=== PATIENT | male | born 1965 | race African-American/Black ===

== ENCOUNTER 2017-08-22 11:02 | Outpatient (CLI) | payer BC | END 2017-08-22 11:03 | disposition home or self-care (01) | LOC: CTENTCT 11:02 | PROVIDERS: ATTEND Otolaryngology Plastic Surgery within the Head & Neck | DX: J32.9 Chronic sinusitis, unspecified (principal) | CPT/HCPCS: 70486 ==

== ENCOUNTER 2017-10-05 12:32 | Day surgery (SDC) | payer BC ==
[2017-10-04 14:49] VITALS: BMI 31.2
[2017-10-05] MEDS ORDERED: Oxymetazoline HCl 0.05% ( 15 ML ) ONE ×2 (13:05→14:49)
[2017-10-05] MEDS ORDERED: Glycopyrrolate 0.2 MG/ML 5 ML SYRINGE ONE (14:00)
[2017-10-05] MEDS ORDERED: Lidocaine 1% PF 5 ML VIAL ONE (14:00)
[2017-10-05] MEDS ORDERED: Dexamethasone 20 MG/5 ML VIAL ONE (14:00)
[2017-10-05] MEDS ORDERED: Ondansetron HCl/PF 4 MG/2 ML Vial ONE (14:00)
[2017-10-05] MEDS ORDERED: PROPOFOL 200 MG/20 ML VIAL ONE (14:00)
[2017-10-05] MEDS ORDERED: Lidocaine 1% w/Epinephrine 1:200K 30 ML VIAL ONE (14:48)
[2017-10-05] MEDS ORDERED: Bacitracin Zinc Ointment 30 gm TUBE ONE (14:49)
[2017-10-05] MEDS ORDERED: Fentanyl 250 MCG/5 ML VIAL ONE ×2 (14:50→16:01)
[2017-10-05] MEDS ORDERED: Meperidine HCl/PF 25 MG/ML VIAL ONE (16:02)
--- NOTE | 2017-10-05 21:44 | OP ---
PREOPERATIVE DIAGNOSES: 1. Chronic rhinosinusitis. 2. Nasal septal deviation. 3. Bilateral inferior turbinate hypertrophy. 4. Nasal obstruction. POSTOPERATIVE DIAGNOSES: 1. Chronic rhinosinusitis. 2. Nasal septal deviation. 3. Bilateral inferior turbinate hypertrophy. 4. Nasal obstruction. PROCEDURES: 1. Bilateral endoscopic sinus surgery, total ethmoidectomies. 2. Bilateral endoscopic sinus surgery, maxillary antrostomies. 3. Bilateral endoscopic sinus surgery, sphenoidotomies. 4. Bilateral endoscopic sinus surgery, frontal sinusotomy. 5. Nasal septoplasty. 6. Bilateral inferior turbinate submucosal resection. SURGEON: Dr. Chema Hernandez. ESTIMATED BLOOD LOSS: 50 mL. COMPLICATIONS: None. ANESTHESIA: GETA. PROCEDURE IN DETAIL: Patient was taken to the operating room and placed supine on the table. Genera l endotracheal anesthesia was obtained by the Anesthesia staff. Tube was secured in the left lower l ip. Patient was then placed in the beach chair position, and Afrin pledgets were placed in the nasal cavity. Injections of 1% lidocaine with 1:100,000 epinephrine were made into the nasal septum as we ll as the inferior turbinates. Patient was then prepped and draped in standard surgical fashion for nasal surgery. Following this, the Afrin pledgets were removed. A Ady incision was made on the left nasal septum. Submucoperichondrial dissection was performed. The deviated portions of the sep mike included portions of the cartilage and the bony septum. These isolated areas were removed using t hree cutting rongeurs. There was noted to be a large dorsal and caudal strut, left intact for suppor t of the nose. The mucoperichondrial flaps were then reapproximated using a 4-0 gut stitch. Any str aight pieces of cartilage were crushed prior to this and placed between the mucoperichondrial flaps. Following this, the inferior turbinates were then punctured with a submucosal coblation wand, and sub mucosal coblations were performed of multiple areas of the inferior portion of the anterior inferior turbinate. Please note that the submucosal microdebrider was used to submucosally resect the anterio r and inferior portions of the inferior turbinates. Inferior turbinates were then laterally fracture d with a [place] elevator. Following this, the 0-degree scope was advanced into the middle meatus. In jections 1% lidocaine with 1:100,000 epinephrine were made into the middle turbinates in lateral nasa l wall. Following this, the middle turbinates were gently medialized with a [employer] [place] elevator and the u ncinate process was anteriorly fractured using a ball-ended probe bilaterally. The uncinate process was then removed using the straight microdebrider and upbiting [place]akesley forceps. Following this, th e ball-ended probe was used to gently identify the natural maxillary sinus ostia, which was then wide roxane using the 40-degree microdebrider blade. Following this, the ethmoidal bulla was identified bila terally and was punctured on its anterior and inferior aspect with the microdebrider and was removed using [place] forceps. Following this, the grand lamella was then identified and was punctured int o the posterior ethmoidal cells. Working from posterior to anterior, the ethmoidal cells were opened in a mucosal-sparing technique. Working through the ethmoidectomies, the sphenoid sinus ostia were identified were gently widened medially and inferiorly using the microdebrider bilaterally. Followin g this, the 45-degree scope and the 40-degree radenoid blade was then used to open the frontal sinus recess and frontal sinus ostia bilaterally. Following this, the nasal cavity was irrigated. MeroPac ks were placed within the middle meatus. South splints were placed and secured. The patient tolerat ed the procedure well.
--- NOTE | 2017-10-11 20:08 | EKG ---
Test Reason : PREOP Blood Pressure : / mmHG Vent. Rate : 097 BPM Atrial Rate : 097 BPM P-R Int : 136 ms QRS Dur : 080 ms QT Int : 334 ms P-R-T Axes : 058 021 010 degrees QTc Int : 424 ms Normal sinus rhythm Normal ECG No previous ECGs available Confirmed by FRIDA GOEL (2) on 10/11/2017 8:07:56 PM Referred By: ISAAC Confirmed By:FRIDA GOEL
== END 2017-10-05 17:20 | disposition home or self-care (01) ==
LOC: SDC 12:32 → EEVIPCON 12:32 → SDC 17:20
PROVIDERS: ATTEND Otolaryngology Plastic Surgery within the Head & Neck
DX: J32.9 Chronic sinusitis, unspecified (principal); J34.2 Deviated nasal septum; J34.3 Hypertrophy of nasal turbinates; M54.5 Low back pain; G89.29 Other chronic pain; F17.210 Nicotine dependence, cigarettes, uncomplicated; R05 Cough
CPT/HCPCS: 93005; 93010; 96374; J1100; J2001; J2175; J2405; J2704; J3010

== ENCOUNTER 2019-03-30 00:57 | Emergency (ER) | payer BC ==
[2019-03-30 01:24] LABS: Hemoglobin 16.3 g/dL (14.0-18.0); Mean Corpuscular HGB CONC 36.2 g/dL (32.0-36.0); Mean Corpuscular Hemoglobin 30.3 pg (27.0-31.0); Mean Corpuscular Volume 83.8 fL (78.0-98.0); Mean Platelet Volume 8.7 fL (7.4-10.4); Platelet Count 193 thou/uL (130-400); RBC Distribution Width 13.7 % (11.5-14.5); Red Blood Cell (RBC) Count 5.38 mill/uL (4.70-6.10); White Blood Cell (WBC) Count 9.5 thou/uL (4.8-10.8)
[2019-03-30 01:42] LABS: ALT (SGPT) 58 U/L (8-55); AST (SGOT) 33 U/L (5-34); Albumin 4.5 g/dL (3.5-5.0); Alkaline Phosphatase 89 U/L (40-150); Anion Gap 13 mmol/L (10-20); BUN (Urea Nitrogen) 14 mg/dL (8.4-25.7); Bilirubin, Total 0.3 mg/dL (0.2-1.2); CK (CPK) 220 U/L (30-200); Calc. Creatinine Clearance 0 mL/min (70-130); Calcium 9.9 mg/dL (7.8-10.44); Carbon Dioxide 27 mmol/L (22-29); Chloride 103 mmol/L (98-107); Estimated GFR-MDRD Greater than 90; Globulin 2.7 g/dL (2.4-3.5); Glucose 101 mg/dL (70-105); Protein, Total 7.2 g/dL (6.0-8.3); Sodium 139 mmol/L (136-145)
[2019-03-30 01:46] LABS: Band 1 % (5-11); Eosinophils 3 % (0-10); Lymphocytes 55 % (21-51); MDiff Complete? YES; Monocytes 2 % (0-10); Neutrophil 38 % (42-75); Platelet Morphology Comment Appears Adequate; RBC Morphology Normal; Reactive Lymphocytes 1 % (0-10)
[2019-03-30 05:31] LABS: Troponin I Less than 0.010 ng/mL (< 0.028)
[2019-03-30] MEDS ORDERED: Ketorolac Tromethamine 30 MG/ML VIAL ONE (05:46)
--- NOTE | 2019-03-30 07:48 | RAD ---
XR Chest 1 View Portable HISTORY: Chest pain COMPARISON: None FINDINGS: There are calcified right paratracheal lymph nodes consistent with old granulomatous diseas e. The heart size is normal. The lungs are well expanded without focal areas of consolidation, pneumothorax or pleural effusions. IMPRESSION: No radiographic evidence of acute cardiopulmonary process.
--- NOTE | 2019-03-30 08:35 | CT ---
PRELIMINARY REPORT/[facility]/EMERGENCY AFTER HOURS PROCEDURE: EXAM: CT Angiography Chest With Contrast EXAM DATE/TIME: 03/30/2019 1:35 AM CLINICAL HISTORY: 53 years old, male; Chest pain; Patient HX: Er waiting room; M53, PT presents to ED with report of cp started 7 or 8pm while watching football. PT reports sharp pain to mid sternal and "a little" SOB. A bnormal chest xray. TECHNIQUE: Imaging protocol: Computed tomographic angiography of the chest with intravenous contrast. COMPARISON: No relevant prior studies available. FINDINGS: Pulmonary arteries: No evidence of pulmonary embolism. Aorta: No acute findings. No aortic aneurysm or dissection. Lungs: Elevation of left hemidiaphragm. Bilateral linear/subsegmental and groundglass dependent atele ctatic opacities. Mild peripheral tiny reticulonodular and groundglass opacities, likely related to p eripheral mild fibrotic changes. Pleural space: No pneumothorax. No pleural effusion. Heart: No significant cardiomegaly. No pericardial effusion. Lymph nodes: No significant adenopathy. Bones/joints: No acute fracture. Soft tissues: No acute findings. IMPRESSION: No aortic dissection or aneurysm. No evidence of pulmonary embolism. Findings described above. EXAM: CT Angiography Abdomen With Contrast EXAM DATE/TIME: 03/30/2019 1:35 AM CLINICAL HISTORY: 53 years old, male; Chest pain; Patient HX: Er waiting room; M53, PT presents to ED with report of cp started 7 or 8pm while watching football. PT reports sharp pain to mid sternal and "a little" SOB. A bnormal chest xray. TECHNIQUE: Imaging protocol: Computed tomographic angiography images of the abdomen with intravenous contrast ma terial. COMPARISON: No relevant prior studies available. FINDINGS: VASCULATURE: Aorta: No acute findings. No aortic aneurysm. No aortic dissection. Celiac trunk and mesenteric arteries: No acute findings. No occlusion or significant stenosis. Renal arteries: No acute findings. No occlusion or significant stenosis. ABDOMEN: Liver: No acute findings. No mass. Small left pelvic calcification. Gallbladder and bile ducts: The gallbladder is contracted. Pancreas: No acute findings. No ductal dilation. Spleen: No acute findings. No splenomegaly. Adrenals: No acute findings. No mass. Kidneys and ureters: Few small nonobstructing left renal calculi. No acute findings. No hydronephrosi s. Stomach and bowel: No obstruction. Intraperitoneal space: No free air. No significant fluid collection. Bones/joints: No acute fracture. Soft tissues: No acute findings. Small fat-containing umbilical hernia. Lymph nodes: No enlarged lymph nodes. IMPRESSION: No acute findings. Few small nonobstructing left renal calculi. Thank you for allowing us to participate in the care of your patient. Dictated and Authenticated by: Selwyn Mclaughlin MD 03/30/2019 3:11 AM Central Time ([place] & [place]) FINAL REPORT CT OF CHEST WITH IV CONTRAST AND 3D POST PROCESSING CT ABDOMEN WITH IV CONTRAST AND 3D POST PROCESSING: I agree with the preliminary report given by Dr. Mclaughlin of [facility]. POS: [facility]
[2019-03-30] MEDS ORDERED: ISOVUE-370 76%-LOCM 1 ML ONE (10:22)
== END 2019-03-30 05:56 | disposition home or self-care (01) ==
LOC: ERS 00:57
DX: R07.2 Precordial pain (principal); F17.210 Nicotine dependence, cigarettes, uncomplicated; Z79.899 Other long term (current) drug therapy
CPT/HCPCS: 36415; 71045; 71275; 80053; 82550; 84484; 85025; 93005; 96374; J1885

== ENCOUNTER 2022-02-16 08:58 | Emergency (ER) | payer BC ==
[2022-02-16 09:56] LABS: #Basophils 0.1 thou/uL (0.0-0.2); #Eosinphils 0.1 thou/uL (0.0-0.7); #Lymphocytes 2.9 thou/uL (1.20-3.40); #Monocytes 0.7 thou/uL (0.11-0.59); #Neutrophils 5.8 thou/uL (1.40-6.50); %Basophils 0.8 % (0.0-1.0); %Eosinophils 0.6 % (0.0-10.0); %Lymphocytes 30.6 % (21.0-51.0); %Monocytes 7.1 % (0.0-10.0); %Neutrophils 60.9 % (42.0-75.0); Hemoglobin 18.6 g/dL (14.0-18.0); Mean Corpuscular HGB CONC 34.3 g/dL (32.0-36.0); Mean Corpuscular Hemoglobin 29.7 pg (27.0-31.0); Mean Corpuscular Volume 86.6 fL (78.0-98.0); Mean Platelet Volume 8.3 fL (7.4-10.4); Platelet Count 274 thou/uL (130-400); RBC Distribution Width 13.6 % (11.5-14.5); Red Blood Cell (RBC) Count 6.26 mill/uL (4.70-6.10); White Blood Cell (WBC) Count 9.6 thou/uL (4.8-10.8)
[2022-02-16] MEDS ORDERED: Ondansetron PF 4 MG/2 ML Vial ONE (09:59)
[2022-02-16 10:12] LABS: ALT (SGPT) 26 U/L (8-55); AST (SGOT) 18 U/L (5-34); Albumin 4.8 g/dL (3.5-5.0); Alkaline Phosphatase 83 U/L (40-110); Anion Gap 14 mmol/L (10-20); BUN (Urea Nitrogen) 7 mg/dL (8.4-25.7); Bilirubin, Total 0.8 mg/dL (0.2-1.2); Calc. Creatinine Clearance 0 mL/min (70-130); Calcium 9.4 mg/dL (7.8-10.44); Carbon Dioxide 21 mmol/L (22-29); Chloride 107 mmol/L (98-107); Estimated GFR 102; Globulin 2.7 g/dL (2.4-3.5); Glucose 121 mg/dL (70-105); Lipase 28 U/L (8-78); Potassium 3.6 mmol/L (3.5-5.1); Protein, Total 7.5 g/dL (6.0-8.3); Sodium 138 mmol/L (136-145)
[2022-02-16] MEDS ORDERED: Morphine 4 MG/ML VIAL ONE (11:16)
[2022-02-16 11:43] LABS: Bacteria/HPF None Seen HPF (None Seen); Bilirubin Negative (Negative); Blood, Urine Negative (Negative); Clarity Clear (Clear); Glucose, Urine (Dipstick) Normal (Negative); Ketone, Urine 80 mg/dL (Negative); Leukocyte Negative Leu/uL (Negative); Nitrite Negative (Negative); Protein, Urine (Dipstick) 50 mg/dL (Neg-Trace); RBC/HPF 0-3 HPF (0-3); Squamous Epithelial None Seen HPF (0-3); Urobilinogen 3 mg/dL (Less than 2); WBC/HPF 0-3 HPF (0-3); pH, Urine 6.5 (5.0-9.0)
== END 2022-02-16 13:19 | disposition home or self-care (01) ==
LOC: ERS 08:58
DX: U07.1 COVID-19 (principal); R11.2 Nausea with vomiting, unspecified; R00.0 Tachycardia, unspecified; F17.210 Nicotine dependence, cigarettes, uncomplicated; I10 Essential (primary) hypertension; Z79.899 Other long term (current) drug therapy
CPT/HCPCS: 36415; 71045; 80053; 81003; 81015; 83690; 84484; 85025; 93005; 96374; 96375; J2270; J2405; U0003; U0005

== ENCOUNTER 2022-03-08 09:41 | Outpatient (CLI) | payer BC | END 2022-03-08 09:42 | disposition home or self-care (01) | LOC: MRI 09:41 | PROVIDERS: ATTEND Specialist | DX: M51.16 Intervertebral disc disorders with radiculopathy, lumbar region (principal); M47.816 Spondylosis without myelopathy or radiculopathy, lumbar region | CPT/HCPCS: 72148 ==

== ENCOUNTER 2024-04-17 06:20 | Observation (INO) | payer BC ==
[2024-04-10 13:22] VITALS: BMI 29.9
[2024-04-17] MEDS ORDERED: Thrombin 5000 UNITS/5 ML VIAL ONE (06:38)
[2024-04-17] MEDS ORDERED: Sodium Chloride 0.9% 100 ML ONE (06:46)
[2024-04-17] MEDS ORDERED: CEFAZOLIN 2 GM VIAL ONE (06:46)
[2024-04-17] MEDS ORDERED: Lidocaine 1% PF 5 ML VIAL ONE (06:53)
[2024-04-17] MEDS ORDERED: Rocuronium Bromide 10 MG/ML (10ML VIAL) ONE (06:53)
[2024-04-17] MEDS ORDERED: fentaNYL PF 100 MCG/2 ML SYRINGE ONE ×2 (06:53→09:10)
[2024-04-17] MEDS ORDERED: PROPOFOL 20 ML ONE (06:53)
[2024-04-17] MEDS ORDERED: Vancomycin 1 GM VIAL ONE (07:00)
[2024-04-17] MEDS ORDERED: Dexamethasone 20 MG/5 ML VIAL ONE ×2 (08:31→12:22)
[2024-04-17] MEDS ORDERED: Ondansetron PF 4 MG/2 ML Vial ONE ×3 (08:31→12:22)
[2024-04-17] MEDS ORDERED: Dexmedetomidine 200 MCG/2 ML VIAL ONE (09:06)
[2024-04-17] MEDS ORDERED: HYDROmorphone 2 MG/ML VIAL SLOW IVP PRN (09:29)
[2024-04-17] MEDS ORDERED: Morphine Sulfate 2 MG/ML SYRINGE SLOW IVP PRN (09:29)
[2024-04-17] MEDS ORDERED: Ondansetron HCl/PF 4 MG/2 ML Vial IVP PRN (09:29)
[2024-04-17] MEDS ORDERED: PACU-Morphine 4MG/ML VIAL SLOW IVP PRN (09:29)
[2024-04-17] MEDS ORDERED: Promethazine HCl 25 MG/ML VIAL IM PRN (09:29)
[2024-04-17] MEDS ORDERED: Ketorolac Tromethamine 30 MG (1 mL) VIAL ONE (09:32)
[2024-04-17] MEDS ORDERED: HYDROmorphone 2 MG/ML VIAL ONE (10:03)
[2024-04-17] MEDS ORDERED: SUGAMMADEX SODIUM 200 MG/2 ML VIAL ONE (10:08)
[2024-04-17] MEDS ORDERED: Lidocaine 2% PF 5 ML VIAL ONE (10:08)
[2024-04-17] MEDS ORDERED: Acetaminophen 325 MG TAB PO PRN (10:38)
[2024-04-17] MEDS ORDERED: Milk Of Magnesia 30 ML UDCUP PO PRN (10:38)
[2024-04-17] MEDS ORDERED: Morphine 2 MG/ML VIAL SLOW IVP PRN (10:38)
[2024-04-17] MEDS ORDERED: Ondansetron PF 4 MG/2 ML Vial IVP PRN (10:38)
[2024-04-17] MEDS ORDERED: Diazepam 5 MG TAB PO PRN (10:40)
[2024-04-17] MEDS ORDERED: hydrALAZINE 20 MG/ML VIAL SLOW IVP PRN (10:40)
[2024-04-17] MEDS ORDERED: Non-Formulary Item 1 EACH (Zolpidem Tartrate [Zolpidem Tartrate] 10 MG Tablet) PO PRN (10:41)
[2024-04-17] MEDS ORDERED: Zolpidem Tartrate 5 MG TAB PO PRN (10:52)
[2024-04-17] MEDS ORDERED: Promethazine HCl 25 MG/ML VIAL ONE (11:20)
[2024-04-17] MEDS ORDERED: PHENYLEPHRINE-NS 100 MCG/ML 10 ML SYRINGE ONE (12:14)
[2024-04-17] MEDS ORDERED: fentaNYL 50 mcg/mL 1 mL Vial ONE (12:30)
[2024-04-17] MEDS ORDERED: Vecuronium 10 MG VIAL ONE (12:55)
[2024-04-17] MEDS: tiZANidine HCl 4 MG TAB PO PRN (13:07)
[2024-04-17] MEDS: HYDROcodone/Acetaminophen 7.5/325 mg Tablet PO PRN (13:07)
[2024-04-17] MEDS: CEFAZOLIN 2 GM in Sodium Chloride 0.9% 100 ML IVPB SCH (13:08)
[2024-04-17] MEDS: Sodium Chloride 0.9% 1,000 ML IV SCH (13:17)
[2024-04-17] MEDS: Acetaminophen/Codeine 30-300mg Tablet PO PRN (17:33)
[2024-04-17] MEDS ORDERED: Non-Formulary Item 1 EACH (Gabapentin [Neurontin] 600 MG Tablet) PO SCH (21:00)
[2024-04-17] MEDS: Gabapentin 300 MG CAP PO SCH (21:28)
[2024-04-18] MEDS: diphenhydrAMINE 25 MG CAP PO PRN (01:19)
[2024-04-18] MEDS: Atorvastatin Calcium 20 MG TAB PO SCH (08:47)
[2024-04-18] MEDS: Loratadine 10 MG TAB PO SCH (08:48)
[2024-04-18] MEDS ORDERED: Cetirizine HCl 10 MG TAB PO SCH (09:00)
[2024-04-18] MEDS: Amlodipine 10 MG TAB PO SCH (09:58)
[2024-04-18 14:45] VITALS: BP 137/69; TEMP 98.3
== END 2024-04-18 14:16 | disposition home or self-care (01) ==
LOC: SDC 06:20 → SURG B 11:55
PROVIDERS: ADMIT Surgery; ATTEND Surgery
PROC: 01NB0ZZ Release Lumbar Nerve, Open Approach (ICD-10-PCS; principal; 2024-04-18)
DX: M48.062 Spinal stenosis, lumbar region with neurogenic claudication (principal); M54.16 Radiculopathy, lumbar region
CPT/HCPCS: C1713; J1100; J1170; J1885; J2001; J2405; J2550; J2704; J3010; J3370; J7030